=== PATIENT | male | born 1980 | race Caucasian/White ===

== ENCOUNTER 2024-04-15 04:10 | Day surgery (SDC) | payer OTHER ==
[~2024-04-15] VITALS: Ht 185.4 cm; Wt 88.6 kg
[2024-04-15] VITALS (217 sets, daily range): BP systolic 90–132; BP diastolic 42–83
[2024-04-15] MEDS ORDERED: SCOPOLAMINE 1.5 MG DIS TD PRN (07:30)
[2024-04-15] MEDS ORDERED: FAMOTIDINE 20 MG/TAB PO PRN (07:30)
[2024-04-15] MEDS ORDERED: cloNIDine HCL 0.1 MG/TAB PO PRN (07:30)
[2024-04-15] MEDS ORDERED: ALBUTEROL SULFATE 2.5 MG VIAL IN PRN (07:30)
[2024-04-15] MEDS ORDERED: LACTATED RINGER'S 1,000 ML IV PRN ×3 (07:30→19:00)
[2024-04-15] MEDS ORDERED: PANTOPRAZOLE SODIUM Sesquihydr 40 MG/TAB PO PRN (07:30)
[2024-04-15] MEDS ORDERED: diazePAM 5 MG/TAB PO PRN ×2 (07:30→08:30)
[2024-04-15] MEDS ORDERED: CYANOCOBALAMIN 500 MCG/TAB ( B12) PO PRN (07:30)
[2024-04-15 07:42] LABS: BASO% 0.3 % (0-3); EOS% 0.7 % (0-8); HEMATOCRIT 53.2 % (39.0-50.0); HEMOGLOBIN 17.7 g/dl (14.0-18.0); IMMATURE GRANULOCYTES 0.1 % (0.0-5.0); LYMPH% 12.4 % (15-41); MEAN CELL VOLUME 91.1 fL CALC (80.0-100.0); MEAN CORPUSCULAR HGB 30.3 pG CALC (26.0-32.0); MEAN CORPUSCULAR HGB CONC 33.3 g/dL CAL (32.0-36.0); MONO% 4.7 % (2-13); NEUT# 5.73 thou/uL (1.82-7.42); NEUT% 81.8 % (42-76); RED BLOOD COUNT 5.84 mill/uL (4.70-6.10); RED CELL DISTRI WIDTH 12.6 % (11.5-15.5)
[2024-04-15] MEDS ORDERED: TESTOST CYP100 MG/ML IM (07:52)
[2024-04-15 07:56] LABS: ALBUMIN 4.5 g/dL (3.2-5.0); BILIRUBIN, TOTAL 0.9 mg/dL (0.2-1.3); CREATININE 0.9 mg/dL (0.7-1.3); TOTAL PROTEIN 7.1 g/dL (6.3-8.2)
[2024-04-15] MEDS ORDERED: ASCORBIC ACID 4,000 MG in SODIUM CHLORIDE 0.9% 1,000 ML IV SCH (08:00)
[2024-04-15] MEDS ORDERED: diazePAM 5 MG/TAB VT PRN (08:45)
[2024-04-15] MEDS ORDERED: MAGNESIUM SULFATE HEPTAHYDRATE 100 ML IV PRN (08:45)
[2024-04-15] MEDS ORDERED: LIDOCAINE HCL 1% (10MG/ML) 100 MG/10 ML MDV VT PRN ×2 (08:45)
[2024-04-15] MEDS ORDERED: PROPOFOL 100 ML IV PRN (08:45)
[2024-04-15] MEDS ORDERED: DEXAMETHASONE SODIUM PHOSPHATE PF 10 MG/ML SDV IV PRN ×2 (08:45→19:00)
[2024-04-15] MEDS ORDERED: OCTREOTIDE ACETATE 100 MCG/VIAL SDV SC PRN (08:45)
[2024-04-15] MEDS ORDERED: ROCURONIUM BROMIDE 10 MG/ML 5ML VIAL IV PRN (08:45)
[2024-04-15] MEDS ORDERED: ONDANSETRON HCl 4 MG/2 ML SDV IV PRN ×3 (08:45→19:00)
[2024-04-15] MEDS ORDERED: cloNIDine HYDROCHLORIDE 100 MCG/ML 10 ML INJ IV PRN (08:45)
[2024-04-15] MEDS ORDERED: NALTREXONE HCL 50 MG/TAB VT PRN (08:45)
[2024-04-15] MEDS ORDERED: DiphenhydrAMINE HCL 50 MG/ML SDV IV PRN (08:45)
[2024-04-15] MEDS ORDERED: LIDOCAINE HCL 1% (10MG/ML) 100 MG/10 ML MDV IV PRN (08:45)
[2024-04-15] MEDS ORDERED: MIDAZOLAM HCL 2 MG/2 ML VIAL IV PRN (08:45)
[2024-04-15] MEDS ORDERED: SUCCINYLCHOLINE CHLORIDE 20 MG/ML 10ML VIAL IV PRN (08:45)
[2024-04-15] MEDS ORDERED: PROPOFOL 10 MG/ML 100ML VIAL IV PRN (08:45)
[2024-04-15] MEDS ORDERED: THIAMINE HCL 100 MG/ML 2ML VIAL IV PRN (08:45)
[2024-04-15] MEDS ORDERED: POTASSIUM CHLORIDE 10 MEQ/50 ML BAG IV PRN (08:45)
[2024-04-15] MEDS ORDERED: cloNIDine HCL 0.1 MG/TAB VT PRN (08:45)
[2024-04-15] MEDS ORDERED: STERILE WATER FOR IRRIGATION 1,000 ML BTL IR PRN (08:45)
[2024-04-15] MEDS ORDERED: cloNIDine HCL 0.1 MG/TAB PO SCH ×2 (10:30→23:00)
[2024-04-15] MEDS ORDERED: diazePAM 5 MG/TAB PO SCH (11:30)
[2024-04-15] MEDS ORDERED: NICOTINE TRANSDERMAL 21 MG/PATCH TD SCH (13:00)
[2024-04-15] MEDS ORDERED: clonazePAM 1 MG/TAB PO PRN (14:55)
[2024-04-15] MEDS ORDERED: CLONIDINE0.1 MG PO (18:00)
[2024-04-15] MEDS ORDERED: KLONOPIN2 MG PO (18:00)
[2024-04-15] MEDS ORDERED: NALTREXONE50 MG PO (18:00)
[2024-04-15] MEDS ORDERED: HALOPERIDOL LACTATE 5 MG/ML SDV IV PRN (19:00)
[2024-04-15] MEDS ORDERED: PROMETHAZINE HCL 25 MG in SODIUM CHLORIDE 0.9% 50 ML IV PRN (19:00)
[2024-04-15] MEDS ORDERED: ACETAMINOPHEN 1,000 MG/100 ML VIAL IV PRN (19:00)
[2024-04-15] MEDS ORDERED: KETOROLAC TROMETHAMINE 30 MG/ML SDV IV PRN (19:00)
[2024-04-15] MEDS ORDERED: PROMETHAZINE HCL 12.5 MG in SODIUM CHLORIDE 0.9% 50 ML IV PRN (19:00)
[2024-04-15] MEDS ORDERED: LORazepam 2 MG/ML IV PRN ×2 (19:00)
[2024-04-15] MEDS ORDERED: ACETAMINOPHEN 500 MG TAB PO PRN (19:00)
[2024-04-15] MEDS ORDERED: PATIENT' OWN MED CONTROLLED 1 EA DOSE IV PRN (21:00)
[2024-04-16] MEDS ORDERED: clonazePAM 1 MG/TAB PO PRN ×2 (04:00→08:00)
[2024-04-16] MEDS ORDERED: cloNIDine HCL 0.1 MG/TAB PO PRN (04:00)
[2024-04-16 04:42] VITALS: BP 120/76
[2024-04-16 04:46] LABS: BASO% 0.1 % (0-3); HEMATOCRIT 50.8 % (39.0-50.0); HEMOGLOBIN 17.1 g/dl (14.0-18.0); IMMATURE GRANULOCYTES 0.2 % (0.0-5.0); LYMPH% 7.2 % (15-41); MEAN CELL VOLUME 91.2 fL CALC (80.0-100.0); MEAN CORPUSCULAR HGB 30.7 pG CALC (26.0-32.0); MEAN CORPUSCULAR HGB CONC 33.7 g/dL CAL (32.0-36.0); MONO% 0.9 % (2-13); NEUT# 8.35 thou/uL (1.82-7.42); NEUT% 91.6 % (42-76); RED BLOOD COUNT 5.57 mill/uL (4.70-6.10); RED CELL DISTRI WIDTH 12.5 % (11.5-15.5)
[2024-04-16 05:07] LABS: BILIRUBIN, TOTAL 0.8 mg/dL (0.2-1.3); CREATININE 0.9 mg/dL (0.7-1.3); MAGNESIUM 2.1 mg/dL (1.6-2.3); POTASSIUM 4.1 mmol/l (3.5-5.1); TOTAL PROTEIN 6.7 g/dL (6.3-8.2)
[2024-04-16 07:56] VITALS: BP 123/69
[2024-04-16] MEDS ORDERED: cloNIDine HCL 0.1 MG/TAB PO SCH (08:00)
[2024-04-16] MEDS ORDERED: NALTREXONE HCL 50 MG/TAB PO SCH (08:00)
[2024-04-16] MEDS ORDERED: ACETAMINOPHEN 325 MG/TAB PO SCH (08:00)
[2024-04-16] MEDS ORDERED: PANTOPRAZOLE SODIUM Sesquihydr 40 MG/TAB PO SCH (08:00)
[2024-04-16] MEDS ORDERED: MAGNESIUM OXIDE 400 MG/TAB PO PRN (09:00)
[2024-04-16] MEDS ORDERED: Cholecalciferol 2,000 UNIT/TAB PO PRN (09:00)
[2024-04-16] MEDS ORDERED: ACETAMINOPHEN 500 MG TAB PO PRN (09:00)
[2024-04-16] MEDS ORDERED: diazePAM 10 MG/2 ML VIAL IV ONE (10:45)
[2024-04-16] MEDS ORDERED: NALTREXONE HCL 50 MG/TAB PO ONE (10:45)
== END 2024-04-16 16:47 | disposition home or self-care (01) | DRG 897 ==
LOC: ANR 04:10 → MS2 04:10 → ANR 10:00
PROVIDERS: ATTEND Anesthesiology
DX: F11.20 Opioid dependence, uncomplicated (principal)
CPT/HCPCS: J0131; J1100; J2060; J2354; J3475; J3490